=== PATIENT | female | born 1965 | race Caucasian/White ===

== ENCOUNTER 2018-02-01 16:11 | Emergency (ER) | payer BC ==
[2018-02-01 16:40] LABS: ADD MAN DIFF? NO
[2018-02-01 16:46] LABS: WHITE BLOOD COUNT 12.7 10^3/ul (4.8-10.8)
[2018-02-01 16:46] LABS: BASOPHIL # 0.1 10^3/ul (0.0-0.1); BASOPHILS % 0.6 % (0.0-2.0); EOSINOPHILS # 0.1 10^3/ul (0.0-0.5); EOSINOPHILS % 0.8 % (0.0-7.0); HEMATOCRIT 43.7 % (37.0-47.0); HEMOGLOBIN 14.9 g/dl (12.0-16.0); LYMPHOCYTES # 1.7 10^3/ul (0.8-2.9); LYMPHOCYTES % 13.5 % (15.0-51.0); MEAN CORPUSCULAR HEMOGLOBIN 29.7 pg (29.0-33.0); MEAN CORPUSCULAR HGB CONC 34.1 g/dl (32.0-37.0); MEAN CORPUSCULAR VOLUME 87.1 fl (82.0-101.0); MEAN PLATELET VOLUME 9.7 fl (7.4-10.4); MONOCYTE # 0.9 10^3/ul (0.3-0.9); MONOCYTES % 7.1 % (0.0-11.0); NEUTROPHIL # 9.9 10^3/ul (1.6-7.5); NEUTROPHILS % 77.6 % (39.0-77.0); PLATELET COUNT 321 10^3/UL (140-415); RED BLOOD COUNT 5.02 10^6/ul (4.20-5.40); RED CELL DISTRIBUTION WIDTH 13.2 % (11.5-14.5)
[2018-02-01 17:05] LABS: ANION GAP 20 (8-16); BLOOD UREA NITROGEN 19 mg/dl (7-20); CALCIUM 10.4 mg/dl (8.4-10.2); CARBON DIOXIDE 23 mmol/L (21-31); CHLORIDE 103 mmol/L (97-110); CREATININE 0.89 mg/dl (0.44-1.00); GLUCOSE 131 mg/dl (70-220); POTASSIUM 3.5 mmol/L (3.5-5.1); SODIUM 142 mmol/L (135-144)
[2018-02-01 17:16] LABS: TROPONIN-I < 0.012 ng/ml (0.000-0.120)
[2018-02-01 17:17] LABS: INR 0.98; PROTIME 13.1 Sec (11.9-14.9)
[2018-02-01 17:18] LABS: PARTIAL THROMBOPLASTIN TIME 24.8 Sec (23.0-35.0)
[2018-02-01 18:06] LABS: D-DIMER < 220.00 ng/ml (<460)
[2018-02-01] MEDS: SOD CHLORIDE 0.9% 1,000 ML IV (20:04)
[2018-02-01] MEDS: HYDROCODONE/APAP (5/325) TAB PO (20:07)
[2018-02-01] MEDS: ONDANSETRON (ODT) 4 MG TAB ODT (20:07)
[2018-02-01 20:10] LABS: TROPONIN-I < 0.012 ng/ml (0.000-0.120)
== END 2018-02-01 21:16 | disposition home or self-care (01) ==
LOC: E/R 16:11
DX: R07.9 Chest pain, unspecified (principal)
CPT/HCPCS: 36415; 71045; 80048; 84484; 85025; 85378; 85610; 85730; 93005; 99285-25